=== PATIENT | male | born 1970 | race Caucasian/White ===

== ENCOUNTER 2016-04-19 10:14 | Emergency (ER) | END 2016-04-19 13:12 | disposition home or self-care (01) | DX: K85.90 Acute pancreatitis without necrosis or infection, unspecified (principal) ==

== ENCOUNTER 2017-01-05 21:28 | Emergency (ER) | payer MEDICAID ==
[~2017-01-05] VITALS: Ht 167.6 cm; Wt 76.0 kg
[~2017-01-05 21:28] MED LIST: HYDR-902 PO; ONDA4TAB14 PO
[2017-01-05 21:32] VITALS: Ht 167.6 cm; Wt 76.0 kg
--- NOTE | 2017-01-05 22:14 | ERD ---
ER Documentation Chief Complaint Chief Complaint chest pressure since this morning HPI The patient is a 46-year-old male, presenting to the ER because of bilateral chest discomfort, more the left than the right, for the last 2 days, worse with movement. He has similar symptoms previously, denies fever, chills, neck pain, chest pain with exertion/vomiting/diaphoresis, dyspnea, abdominal pain, vomiting , diarrhea. He does not smoke nor drink. He works as a punch machine operator Past medical/surgical history: None ROS All systems reviewed and are negative except as per history of present illness. Medications Home Meds Active Scripts Ibuprofen* (Motrin*) 600 Mg Tab, 600 MG PO Q6, #20 TAB Prov:SHIN GREEN MD 01/05/17 Discontinued Scripts Ondansetron (Ondansetron Odt) 4 Mg Tab.rapdis, 4 MG PO Q6H Y for NAUSEA AND/OR VOMITING, #20 TAB Prov:MANUEL KOCH PA-C 04/19/16 Hydrocodone/Acetaminophen ([place] 10-325 Tablet) 1 Each Tablet, 1 TAB PO Q6H Y for PAIN, #20 TAB Prov:MANUEL KOCH PA-C 04/19/16 PMhx/Soc Hx Alcohol Use: No Hx Substance Use: No Hx Tobacco Use: No Physical Exam Vitals Vital Signs Date Time Temp Pulse Resp B/P Pulse Ox O2 Delivery O2 Flow Rate FiO2 01/05/17 21:32 98.1 83 21 143/84 98 Physical Exam Const: No acute distress. Head: Atraumatic. Eyes: Normal Conjunctiva. ENT: Normal External Ears, Nose and Mouth. Neck: Full range of motion. No meningismus. Resp: Clear to auscultation bilaterally. Chest: Reproducible chest wall tenderness, no crepitus, no erythema Cardio: Regular rate and rhythm. Abd: Soft, non distended, normal bowel sounds, non tender. Skin: No petechiae or rashes. Back: No midline or flank tenderness. Ext: No cyanosis, or edema. Neur: Awake and alert. No focal deficit Psych: Normal Mood and Affect. Results 24 hrs Current Medications Medications (Trade) Dose Ordered Sig/Hernandez Route PRN Reason Start Time Stop Time Status Last Admin Dose Admin Ketorolac Tromethamine (Toradol) 60 mg ONCE STAT IM 01/05/17 23:12 01/05/17 23:13 DC Procedures/MDM EKG: Read by emergency physician Rate/Rhythm: Normal Sinus Rhythm 77 beats/min QRS, ST, T-waves: No ST elevation, no T inversion Impression: Normal EKG [place] [id number] Radiology Main Line: [phone] DIAGNOSTIC IMAGING REPORT Patient: EMELY ESCALERA : 1970 Age: 46 Sex: M MR #: [id number] DOS: 01/05/17 0000 Ordering MD: SHIN GREEN MD Location: E/R Room/Bed: PROCEDURE: XR Chest. CLINICAL INDICATION: Chest pain. TECHNIQUE: Single frontal view. COMPARISON: None. FINDINGS: The lungs are clear. The heart size is normal. There is no pleural effusion. There is no pneumothorax. IMPRESSION: 1. Normal chest radiograph. RPTAT: QQ .Domingo Erazo MD, MD Date Time Electronically viewed and signed by .Domingo Erazo MD, MD on 01/05/2017 23:37 .R/ CC: SHIN GREEN MD MEDICAL MAKING DECISION: The patient is a 46-year-old male, presenting with acute chest wall pain. He was treated with Toradol 60 mg IM for pain with good response. I do not suspect ACS The differential diagnoses considered include but are not limited to acute coronary syndrome, acute myocardial infarction, pericarditis, pulmonary embolism , aortic dissection, pneumonia, pleural effusion, pneumothorax, GERD, chest wall pain. Departure Diagnosis: Primary Impression: Chest wall pain Condition: Good Comments He was discharged with Motrin I discussed the findings with the patient. I advised the patient to follow-up with the primary physician in about 1-2 days, sooner if needed and return if any concern. The patient's blood pressure was elevated (>120/80) but appears stable without evidence of hypertension emergency or urgency. The patient was counseled about the risks of hypertension and urged to pursue outpatient monitoring and therapy within a week with their primary care physician. SHIN GREEN MD 19, 2017 22:14
[2017-01-05] MEDS ORDERED: KETOROLAC 60 MG INJ IM STA (23:12)
--- NOTE | 2017-01-05 23:37 | RADRPT ---
PROCEDURE: XR Chest. CLINICAL INDICATION: Chest pain. TECHNIQUE: Single frontal view. COMPARISON: None. FINDINGS: The lungs are clear. The heart size is normal. There is no pleural effusion. There is no pneumothorax. IMPRESSION: 1. Normal chest radiograph. RPTAT: QQ .Domingo Erazo MD, Date Time Electronically viewed and signed by .Domingo Erazo MD, on 01/05/2017 23:37 .R/
[2017-01-05] MEDS ORDERED: IBUP-1542 PO (23:46)
[2017-01-06 00:07] VITALS: BP 133/78; PULSE 71; RESP 16; TEMP 98.3
== END 2017-01-06 00:09 | disposition home or self-care (01) ==
LOC: E/R 21:28
DX: R07.89 Other chest pain (principal)
CPT/HCPCS: 71010; 96372; J1885; Z7502; 93005

== ENCOUNTER 2018-10-18 16:04 | Emergency (ER) | payer MEDICAID, OTHER ==
[~2018-10-18] VITALS: Wt 80.0 kg
[~2018-10-18 16:04] MED LIST changes: +AMOX1TAB10 PO; -HYDR-902 PO; +IBUP-1542 PO; -ONDA4TAB14 PO
--- NOTE | 2018-10-18 16:19 | EN ---
Date/Time of Note Date/Time of Note DATE: 10/18/18 TIME: 16:19 ER Progress Note Patient here with abdominal pain. Work-up initiated, labs ordered. MANUEL KOCH PA-C Oct 18, 2018 16:19
--- NOTE | 2018-10-18 20:23 | ERD ---
ER Documentation Chief Complaint Chief Complaint AP WITH NAUSEA today, dysuria HPI 48-year-old male otherwise healthy coming in for several days of abdominal pain predominantly in the left lower quadrant. Has had nausea. No diarrhea no constipation no vomiting. Has an intermittent fevers. Has been taking antipyretics with temporary relief. No prior abdominal surgeries. No recent travel or antibiotics. No dysuria. No testicular pain. ROS All systems reviewed and are negative except as per history of present illness. Medications Home Meds Active Scripts Ibuprofen* (Motrin*) 600 Mg Tab, 600 MG PO Q6, #20 TAB Prov:SHIN GREEN MD 01/05/17 Allergies Allergies: Coded Allergies: No Known Allergy (Unverified , 01/06/17) PMhx/Soc Medical and Surgical Hx: pt denies Medical Hx, pt denies Surgical Hx Hx Alcohol Use: No Hx Substance Use: No Hx Tobacco Use: No Physical Exam Vitals Vital Signs Date Temp Pulse Resp B/P (MAP) Pulse Ox O2 O2 Flow FiO2 Time Delivery Rate 10/18/18 65 21 131/85 99 Room Air 21:00 (100) 10/18/18 63 20 128/86 99 Room Air 20:00 (100) 10/18/18 100.1 78 18 142/71 99 16:10 (94) Physical Exam Const: No acute distress Head: Atraumatic Eyes: Normal Conjunctiva ENT: Normal External Ears, Nose and Mouth. Neck: Full range of motion. No meningismus. Resp: Clear to auscultation bilaterally Cardio: Regular rate and rhythm, no murmurs Abd: Soft, tenderness to right and left lower quadrant. Rebound, non distended. Normal bowel sounds Skin: No petechiae or rashes Back: No midline or flank tenderness Ext: No cyanosis, or edema Neur: Awake and alert Psych: Normal Mood and Affect Result Diagram: 10/18/18 1713 10/18/18 1713 Results 24 hrs Laboratory Tests Test 10/18/18 17:13 White Blood Count 6.5 10^3/ul Red Blood Count 4.75 10^6/ul Hemoglobin 13.9 g/dl Hematocrit 40.0 % Mean Corpuscular Volume 84.2 fl Mean Corpuscular Hemoglobin 29.3 pg Mean Corpuscular Hemoglobin Concent 34.8 g/dl Red Cell Distribution Width 13.2 % Platelet Count 141 10^3/UL Mean Platelet Volume 10.0 fl Immature Granulocytes % 0.500 % Neutrophils % 81.3 % Lymphocytes % 10.7 % Monocytes % 6.7 % Eosinophils % 0.5 % Basophils % 0.3 % Nucleated Red Blood Cells % 0.0 /100WBC Immature Granulocytes # 0.030 10^3/ul Neutrophils # 5.3 10^3/ul Lymphocytes # 0.7 10^3/ul Monocytes # 0.4 10^3/ul Eosinophils # 0.0 10^3/ul Basophils # 0.0 10^3/ul Nucleated Red Blood Cells # 0.0 10^3/ul Urine Color YELLOW Urine Clarity CLEAR Urine pH 6.0 Urine Specific [place] 1.005 Urine Ketones NEGATIVE mg/dL Urine Nitrite NEGATIVE mg/dL Urine Bilirubin NEGATIVE mg/dL Urine Urobilinogen NEGATIVE mg/dL Urine Leukocyte Esterase NEGATIVE Myron/ul Urine Microscopic RBC 0 /HPF Urine Microscopic WBC 0 /HPF Urine Hemoglobin 1+ mg/dL Urine Glucose NEGATIVE mg/dL Urine Total Protein NEGATIVE mg/dl Sodium Level 138 mmol/L Potassium Level 3.5 mmol/L Chloride Level 101 mmol/L Carbon Dioxide Level 28 mmol/L Anion Gap 9 Blood Urea Nitrogen 14 mg/dl Creatinine 1.00 mg/dl Est Glomerular Filtrat Rate mL/min > 60 mL/min Glucose Level 129 mg/dl Calcium Level 8.7 mg/dl Total Bilirubin 1.3 mg/dl Direct Bilirubin 0.00 mg/dl Indirect Bilirubin 1.3 mg/dl Aspartate Amino Transf (AST/SGOT) 102 IU/L Alanine Aminotransferase (ALT/SGPT) 166 IU/L Alkaline Phosphatase 92 IU/L Total Protein 7.0 g/dl Albumin 4.1 g/dl Globulin 2.90 g/dl Albumin/Globulin Ratio 1.41 Lipase 59 U/L Procedures/MDM Patient presents with abdominal pain,, has flatus , BM afebrile Patient is well appearing. Non acute abdominal exam. Low suspicion for AAA given no palpable mass . Low suspicion for mesenteric ischemia given pain not out of proportion to exam, and no major risk factors Patient remains PO tolerant. Serial abdominal exam without increase in abdominal pain. Given exam and history, low suspicion for acute abdominal process, such as acute cholecystitis, pancreatitis, perforated viscus, atypical appendicitis or torsion. CT does show acute diverticulitis we will treat with antibiotics and close follow-up. Extensive conversation about return precautions and need for follow-up. Departure Diagnosis: Primary Impression: Diverticulitis Condition: Stable SHIN MAY MD Oct 18, 2018 20:23
[2018-10-18 23:05] VITALS: BP 134/88; PULSE 71; RESP 16
== END 2018-10-18 23:12 | disposition home or self-care (01) ==
LOC: E/R 16:04
DX: K57.32 Diverticulitis of large intestine without perforation or abscess without bleeding (principal)
CPT/HCPCS: 36415; 74177; 80053; 81001; 83690; 85025; 87086; Z7502; Z7610

== ENCOUNTER 2018-11-16 22:36 | Emergency (ER) | payer MEDICAID ==
[~2018-11-16] VITALS: Ht 170.2 cm; Wt 77.0 kg
[2018-11-16 22:46] VITALS: Ht 170.2 cm; Wt 77.0 kg
[2018-11-16 23:12] VITALS: BP 148/75; PULSE 65; RESP 18
[2018-11-17] MEDS ORDERED: AZITHROMYCIN 500 MG TAB PO ONE
[2018-11-17] MEDS ORDERED: CEFTRIAXONE 250 MG INJ IM ONE
== END 2018-11-17 02:00 | disposition home or self-care (01) ==
LOC: E/R 22:36
DX: D64.9 Anemia, unspecified (principal); Z20.2 Contact with and (suspected) exposure to infections with a predominantly sexual mode of transmission
CPT/HCPCS: 80053; 81003; 83690; 85025; 87591; J0696; Z7610; 36415; 96372